=== PATIENT | male | born 1950 ===

== ENCOUNTER → 2016-06-17 | Outpatient (CLI) | payer BC ==
[2016-06-17 12:50] LABS: INR 2.9 (0.9-1.1); PROTHROMBIN TIME (PATIENT) 32.1 SECONDS (9.0-12.0)
== END | disposition home or self-care (01) ==
LOC: C.LABWYN 10:54
PROVIDERS: ATTEND Nurse Practitioner Family
DX: I82.409 Acute embolism and thrombosis of unspecified deep veins of unspecified lower extremity (principal)

== ENCOUNTER → 2016-07-01 | Outpatient (CLI) | payer BC ==
[2016-07-01 12:31] LABS: INR 3.5 (0.9-1.1); PROTHROMBIN TIME (PATIENT) 39.2 SECONDS (9.0-12.0)
== END | disposition home or self-care (01) ==
LOC: C.LABWYN 11:03
PROVIDERS: ATTEND Nurse Practitioner Family
DX: Z51.81 Encounter for therapeutic drug level monitoring (principal); Z79.01 Long term (current) use of anticoagulants

== ENCOUNTER → 2016-07-04 | Outpatient (CLI) | payer BC ==
[2016-07-04 12:57] LABS: INR 2.1 (0.9-1.1); PROTHROMBIN TIME (PATIENT) 23.6 SECONDS (9.0-12.0)
== END | disposition home or self-care (01) ==
LOC: C.LABWYN 11:24
PROVIDERS: ATTEND Nurse Practitioner Family
DX: Z51.81 Encounter for therapeutic drug level monitoring (principal); Z79.01 Long term (current) use of anticoagulants

== ENCOUNTER → 2016-07-24 | Outpatient (CLI) | payer BC ==
[2016-07-24 13:08] LABS: INR 2.2 (0.9-1.1); PROTHROMBIN TIME (PATIENT) 23.9 SECONDS (9.0-12.0)
--- NOTE | 2016-07-27 07:09 | CODING QUERY NO DIAGNOSIS ---
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 Please assist us with providing a diagnosis/symptom for the test(s) below: A diagnosis/symptom was not documented on your Order. A valid diagnosis/symptom is required to bill all insurances. Please remember that we are unable to code a diagnosis of rule out, probable, possible, questionable, or suspected. DOS 07/24/16 Tests that require a diagnosis: * PROTHROMBIN TIME DIAGNOSIS: Provider Signature: Date: Thank you Carol Cui [employer] Once completed, please kindly fax back to [phone] For questions please call [phone]
== END | disposition home or self-care (01) ==
LOC: C.LABWYN 08:00
PROVIDERS: ATTEND Internal Medicine
DX: I82.409 Acute embolism and thrombosis of unspecified deep veins of unspecified lower extremity (principal); Z95.828 Presence of other vascular implants and grafts

== ENCOUNTER → 2016-08-21 | Outpatient (CLI) | payer BC ==
[2016-08-21 13:02] LABS: INR 1.8 (0.9-1.1); PROTHROMBIN TIME (PATIENT) 20.1 SECONDS (9.0-12.0)
== END | disposition home or self-care (01) ==
LOC: C.LABWYN 13:00
PROVIDERS: ATTEND Nurse Practitioner Family
DX: Z51.81 Encounter for therapeutic drug level monitoring (principal); Z79.01 Long term (current) use of anticoagulants

== ENCOUNTER → 2016-09-11 | Outpatient (CLI) | payer BC ==
[2016-09-11 12:09] LABS: INR 1.7 (0.9-1.1); PROTHROMBIN TIME (PATIENT) 18.4 SECONDS (9.0-12.0)
== END | disposition home or self-care (01) ==
LOC: C.LABWYN 13:43
PROVIDERS: ATTEND Internal Medicine
DX: Z79.01 Long term (current) use of anticoagulants (principal); Z51.81 Encounter for therapeutic drug level monitoring

== ENCOUNTER → 2016-09-18 | Outpatient (CLI) | payer BC ==
[2016-09-18 12:57] LABS: INR 2.1 (0.9-1.1); PROTHROMBIN TIME (PATIENT) 23.2 SECONDS (9.0-12.0)
== END | disposition home or self-care (01) ==
LOC: C.LABWYN 11:36
PROVIDERS: ATTEND Internal Medicine
DX: I82.409 Acute embolism and thrombosis of unspecified deep veins of unspecified lower extremity (principal)

== ENCOUNTER → 2016-10-09 | Outpatient (CLI) | payer BC ==
[2016-10-09 12:14] LABS: PROTHROMBIN TIME (PATIENT) 34.1 SECONDS (9.0-12.0)
== END | disposition home or self-care (01) ==
LOC: C.LABWYN 12:16
PROVIDERS: ATTEND Internal Medicine
DX: Z79.01 Long term (current) use of anticoagulants (principal)

== ENCOUNTER → 2016-11-06 | Outpatient (CLI) | payer BC ==
[2016-11-06 12:20] LABS: INR 1.8 (0.9-1.1); PROTHROMBIN TIME (PATIENT) 19.9 SECONDS (9.0-12.0)
== END | disposition home or self-care (01) ==
LOC: C.LABWYN 15:53
PROVIDERS: ATTEND Internal Medicine
DX: Z51.81 Encounter for therapeutic drug level monitoring (principal); Z79.01 Long term (current) use of anticoagulants